=== PATIENT | female | born 1965 | race Caucasian/White ===

== ENCOUNTER → 2020-10-05 00:19 | Outpatient (CLI) | payer SELFPAY ==
[2020-10-05 19:26] LABS: SARS-CoV-2 RNA PCR Negative
== END ==
PROVIDERS: PCP Internal Medicine; Visit Provider Obstetrics & Gynecology
DX: Z01.812 Encounter for preprocedural laboratory examination (principal); Z20.822 Contact with and (suspected) exposure to COVID-19
CPT/HCPCS: C9803; U0003; U0005

== ENCOUNTER 2020-10-08 00:12 | Day surgery (SDC) | payer OTHER, SELFPAY ==
[2020-09-25 12:49] VITALS: BMI 40.8
--- NOTE | 2020-10-07 13:50 | WPDANESEPPF ---
Anes - Initial Pre Proc Eval Procedure: Operation Date: 10/08/20 11:30 Proposed Procedures p Hysteroscopy Dilation and Curettage - Wild Fernandez MD Date/Time: 10/07/20 13:50 Surgeon: Wild Fernandez MD Pre Op Diagnosis: post menopausal bleeding Patient Data Age: 55 Gender: F Height: 1.7 m Weight: 118.18 kg Allergies Allergy/AdvReac Type Severity Reaction Status Date / Time shellfish derived AdvReac Unknown Nausea and Verified 10/08/20 10:08 Vomiting Home Medications Medication Instructions Recorded Confirmed Type cholecalciferol (vitamin D3) 125 mcg PO DAILY 09/25/20 09/25/20 History fluticasone propionate [Flonase 1 spray INTRANASAL Q12H 09/25/20 09/25/20 History Allergy Relief] levothyroxine 150 mcg QAM 09/25/20 10/08/20 History loratadine [Claritin] 10 mg PO DAILY 09/25/20 09/25/20 History multivitamin [Multi-Vitamin] 1 tablet PO DAILY 09/25/20 09/25/20 History vitamin B complex 1 tablet DAILY 09/25/20 09/25/20 History Patient hx anesthesia problems: none Family hx anesthesia problems: none PMFSH Past Medical History Medical History (Updated 10/07/20 @ 13:51 by Ran Clark MD) Hypothyroidism Morbid obesity with BMI of 40.0-44.9, adult Family History Family History (Updated 11/15/15 @ 23:19 by DOCTOR UNKNOWN) Father Family history of kidney disease, Onset Age: 79 Family history of Alzheimer's disease Family history of diabetes mellitus in first degree relative Mother Family history of pancreatic cancer, Onset Age: 73 Other Family history of malignant neoplasm of ovary Social History Social History Smoking status: Never smoker Second hand tobacco smoke exposure: No Alcohol intake: never Substance use: never Substance use type: does not use Living arrangements: with family Spiritual care concerns: No Anes - Eval Final PreProcedure Day of Procedure 10/07/20 13:50 Patient weight: obese Heart: regular rate and rhythm Lungs: clear to auscultation and normal air movement Airway: Mallampati scale class II Neurological: alert and oriented Last oral intake: >/= 8 hours ASA classification: III Emergent: no Anesthetic plan: proceed Anesthesia type and monitoring: general LMA Informed Consent: The patient's anesthetic plan and its attendant risks and benefits were discussed with the patient/family/POA. Questions were solicited and answers provided to the satisfaction of the patient/family/POA.
--- NOTE | 2020-10-08 10:11 | PM.IMHP ---
H&P: HPI History of Present Illness Date/Time: 10/08/20 10:11 this patient is a 55-year-old female with postmenopausal bleeding. We have agreed to perform hysteroscopy D&C in the hospital. She had anatomy that prohibited the endometrial biopsy in the office. Patient understands the risks to the procedure. She understands that injuries may occur that result in hospitalization, more surgery, and severe illness. She understands there is risk of hemorrhage and infection. Chief Complaint: Vaginal bleeding Review of Systems Constitutional: Constitutional: Reports no additional constitutional complaints, Denies fatigue, Denies headache(s), Denies lethargy and Denies weakness Eyes: Eyes: Reports no additional eye complaints, Denies blurry vision and Denies photophobia ENT: Reports as per HPI, Denies headache(s) and Denies neck pain Cardiovascular: Cardiovascular: Denies chest pain, Denies diaphoresis, Denies leg edema, Denies palpitations and Denies dyspnea Respiratory: Respiratory: Denies hemoptysis, Denies dyspnea and Denies wheezing Gastrointestinal: Gastrointestinal: Denies abdominal pain, Denies melena, Denies bloating, Denies hematochezia, Denies nausea and Denies vomiting Genitourinary: Genitourinary: Reports no additional female genitourinary complaints Musculoskeletal: Musculoskeletal: Denies joint swelling, Denies neck pain, Denies numbness and Denies stiffness Neurologic: Denies Abnormal speech present, Denies confusion, Denies headache(s), Denies numbness and Denies weakness Psychiatric: Psychiatric: Denies anxiety, Denies confusion, Denies depression, Denies homicidal ideation and Denies suicidal ideation Endocrine: Endocrine: Denies fatigue and Denies palpitations Allergic/Immunologic: Allergic/Immunologic: Denies wheezing PMF Past Medical History Medical History (Updated 10/08/20 @ 10:12 by Wild Fernandez MD) Hypothyroidism Morbid obesity with BMI of 40.0-44.9, adult Family History Family History (Updated 11/15/15 @ 23:19 by DOCTOR UNKNOWN) Father Family history of kidney disease, Onset Age: 79 Family history of Alzheimer's disease Family history of diabetes mellitus in first degree relative Mother Family history of pancreatic cancer, Onset Age: 73 Other Family history of malignant neoplasm of ovary Social History Social History Smoking status: Never smoker Second hand tobacco smoke exposure: No Alcohol intake: never Substance use: never Substance use type: does not use Living arrangements: with family Spiritual care concerns: No Meds Home Medications and Allergies Home Medications Medication Instructions Recorded Confirmed Type cholecalciferol (vitamin D3) 125 mcg PO DAILY 09/25/20 09/25/20 History fluticasone propionate [Flonase 1 spray INTRANASAL Q12H 09/25/20 09/25/20 History Allergy Relief] levothyroxine 150 mcg QAM 09/25/20 10/08/20 History loratadine [Claritin] 10 mg PO DAILY 09/25/20 09/25/20 History multivitamin [Multi-Vitamin] 1 tablet PO DAILY 09/25/20 09/25/20 History vitamin B complex 1 tablet DAILY 09/25/20 09/25/20 History Allergies Allergy/AdvReac Type Severity Reaction Status Date / Time shellfish derived AdvReac Unknown Nausea and Verified 10/08/20 10:08 Vomiting Exam Const: General: healthy appearing, comfortable and no acute distress; No confusion Orientation/consciousness: No confusion Eyes: Direct Ophthalmoscopy: No photophobia Resp: Auscultation: clear to auscultation bilaterally, no rales, no rhonchi and no wheezes Cardio: Rate: regular rate Heart sounds: no click, no murmurs and no rubs GI: Inspection: non-distended GI Palp: No abdominal tenderness Auscultation: normal bowel sounds Neuro: General: No confusion Speech: No Abnormal speech present Extrem: General: normal to inspection, no pedal edema and no calf tenderness Assessment and Plan Assessment and plan (1) Postmenopausal bleeding: Code
--- NOTE | 2020-10-08 10:12 | WPDHPUPDATE1 ---
History and Physical Update Update Date/Time: 10/08/20 10:12 History and Physical has been reviewed, including an updated exam of the patient. There are NO changes in the patient's condition. Risks, benefits, and alternatives have been discussed and questions answered. Patient agrees to proceed with procedure.
[2020-10-08 10:50] VITALS: BMI 41.4
[2020-10-08] MEDS: ACETAMINOPHEN 500 MG TABLET 1000 MG PO (10:51)
[2020-10-08] MEDS: LACTATED RINGERS 1,000 ML 30 ML IV CONT (10:51)
[2020-10-08 10:56] VITALS: BP 148/83; PULSE 89; RESP 14; TEMP 36.3; O2SAT 100
[2020-10-08 11:50] VITALS: BP 124/56; PULSE 80; RESP 12; O2SAT 95
--- NOTE | 2020-10-08 11:56 | W.PM.PROC2 ---
Procedure Note - Detailed Date of Procedure 10/08/20 Pre-op Diagnosis post menopausal bleeding Post-op Diagnosis same Procedure Performed Hysteroscopy D&C Surgeon Wild Fernandez MD Anesthesia MAC Indications abnormal uterine bleeding Description of Procedure the patient was taken the operating room. She was prepped and draped in the dorsal lithotomy position after induction of mac anesthesia. A speculum was placed in the vagina. The cervix was grasped with a tenaculum. The cervix was dilated about 1 cm. The hysteroscope was inserted. The intrauterine cavity and endocervix were evaluated. Hysteroscope was withdrawn. A medium-size curette was used to curettage all the surfaces were within the endometrial cavity. the sample was collected on Telfa and sent to pathology. The hysteroscope was reinserted and the above findings were noted. Patient tolerated the procedure well. The speculum and tenaculum were removed. She was taken recovery room in stable condition. Sponge lap and needle counts were correct x2. Estimated Blood Loss 10 Drains No Packing No Pathology yes Complications No immediate complications Condition stable Disposition PACU
[2020-10-08 12:15] VITALS: BP 128/59; PULSE 62; RESP 20
[2020-10-08 12:45] VITALS: BP 128/59; PULSE 62; RESP 20
[2020-10-08 12:55] VITALS: BP 128/59; PULSE 62; RESP 20
== END 2020-10-08 13:10 | disposition home or self-care (01) ==
PROVIDERS: PCP Internal Medicine; Visit Provider Obstetrics & Gynecology
PROC: 0U5B8ZZ Destruction of Endometrium, Via Natural or Artificial Opening Endoscopic (ICD-10-PCS; CPT 58563; principal; 2020-10-08 11:30)
DX: N95.0 Postmenopausal bleeding (principal); N85.8 Other specified noninflammatory disorders of uterus; E03.9 Hypothyroidism, unspecified; E66.01 Morbid (severe) obesity due to excess calories; Z68.41 Body mass index [BMI] 40.0-44.9, adult
CPT/HCPCS: 58558; 88305; A9270; J1100; J2250; J2405; J2704; J3010; J7030; J7120

== ENCOUNTER 2024-12-06 14:46 | Outpatient (CLI) | payer OTHER, SELFPAY ==
--- NOTE | ~2024-12-06 | MM_ITS ---
EXAMINATION: MM screening lisa BI w fouzia HISTORY: Screening TECHNIQUE: Craniocaudal and mediolateral oblique 3-D tomosynthesis images were obtained and synthetic 2-D images were generated. CAD analysis was submitted and interpreted. COMPARISON: No prior mammogram is available for comparison at this institution. BREAST PARENCHYMAL COMPOSITION: Not Dense: The breasts are almost entirely fatty. FINDINGS: There is no evidence of suspicious mass, calcification, or architectural distortion to suggest malignancy in either breast. There has been no suspicious interval change. IMPRESSION: 1. No mammographic evidence of malignancy. 2. Recommend routine screening mammography in one year. BI-RADS Category 1: Negative Reviewed, dictated and finalized at location A.
== END 2024-12-06 14:47 | disposition home or self-care (01) ==
LOC: MICIMG 14:47
PROVIDERS: PCP Internal Medicine; Visit Provider Nurse Practitioner
DX: Z12.31 Encounter for screening mammogram for malignant neoplasm of breast (principal)
CPT/HCPCS: 77063; 77067